=== PATIENT | female | born 1980 | race Caucasian/White ===

== ENCOUNTER 2017-03-16 13:43 | Emergency (ER) | payer OTHER ==
[~2017-03-16 13:43] MED LIST: AMOXICILLIN500 M1 PO; BACTRIM DS TABL1 TA1 PO; BENADRYL; BUSPAR PO; CELEXA PO; KEFLEX500 M1 PO; LORCET 10-6501 EACH PO; METFORMIN PO; MOTRIN600 M2 PO; NORCO1 TAB 10/3 DOB; PEPCID; POTASSIUM CHLO20 ME1 PO; PREDNISONE; TRAZODONE PO; WELLBUTRIN SR150 MG PO; ZOVIRAX800 MG PO
[2017-03-16] MEDS ORDERED: SINGULAIR (13:45)
[2017-03-16] MEDS ORDERED: WELLBUTRIN (13:45)
[2017-03-16] MEDS ORDERED: JANUVIA100 MG (13:46)
[2017-03-16] MEDS ORDERED: NEURONTIN100 MG (13:46)
== END 2017-03-16 14:57 | disposition home or self-care (01) ==
LOC: SED 13:43
DX: K04.7 Periapical abscess without sinus (principal); K05.00 Acute gingivitis, plaque induced; F32.9 Major depressive disorder, single episode, unspecified; E11.9 Type 2 diabetes mellitus without complications
CPT/HCPCS: 96372; 99283; J0696

== ENCOUNTER 2017-05-24 14:31 | Emergency (ER) | payer OTHER ==
[~2017-05-24] VITALS: Ht 160 cm; Wt 72.6 kg
--- NOTE | ~2017-05-24 | US106 ---
[facility] A Service of [facility] & [facility] RADIOLOGY TEXT RESULTS PATIENT: CHELI JUNG LOCATION: SED : 82 UNIT #: [id number] AGE: [address]: Darrius Goldsmith MD SEX: F ORDER DR: [id number] [id number] E MR#: [id number] Acc #: [id number] NAME: CHELI JUNG : 1980 SEX: F STUDY DATE/TIME: 05/24/2017 16:07 UNIT: SED ROOM: STUDY DESCRIPTION: US Preg Uterus Transvaginal Attending Physician: Darrius Goldsmith M.D. Ordering Physician: Darrius Goldsmith M.D. Primary Care Physician: Primary Care Physician No MEDICAL IMAGING REPORT This report is preliminary unless electronic signature is present. EXAM Transvaginal pelvic ultrasound 05/24/2017 HISTORY Patient found out she was 2 weeks ago. Last menstrual period. Patient states she had spotting in March beta HCG 101,088. . FINDINGS Real time ultrasonography pelvic structures performed transvaginally. Study is limited in the absence of transabdominal imaging. The uterus measures approximately 7.89 cm x 8.35 cm x approximately 6.32 cm. There is a single intrauterine gestation present. Cardiac activity is present with heart rate of 173 beats per minute. [place] rump length suggest gestational age 9 weeks 2 days. The gestational sac appears of normal contour. The gestational sac diameters would suggest a gestational age 8 weeks 2 days. No abnormal intrauterine fluid collection. The visualized myometrium is unremarkable. The right ovary measures 3.61 cm x 2.59 cm x 2.87 cm. Arterial flow present. Left ovary measures 2.85 cm x 2.88 cm x 2.09 cm. Arterial flow present. No suspicious adnexal structures and no free fluid in pelvis. IMPRESSION 1. Single intrauterine present. cardiac activity present with heart rate 173 beats per minute. Based upon ultrasound measurements, gestational age approximately 9 weeks 1 day. Estimated date of delivery based upon ultrasound approximately 12/26/2017. 2. Bilateral ovaries normal in appearance. Arterial flow in bilateral ovaries. 3. No free fluid in pelvis. Formal obstetric followup strongly recommended. [facility]. [facility] A Service of [facility] & [facility] RADIOLOGY TEXT RESULTS PATIENT: CHELI JUNG LOCATION: [facility] [place] [birth year] UNIT #: [id number] AGE: [address]: Darrius Goldsmith MD SEX: F ORDER DR: Dictated by... Maged Bertrand M.D. THIS IS AN ELECTRONICALLY VERIFIED REPORT Maged Bertrand M.D. at 05/27/2017 2:44 PM GORDON/anna TD: 05/25/2017 00:02 JOB #: [id number] MEDICAL IMAGING REPORT Page 1 of 1
[~2017-05-24 14:31] MED LIST changes: +JANUVIA100 MG; +NEURONTIN100 MG; +SINGULAIR; +WELLBUTRIN
[2017-05-24] MEDS ORDERED: NOVOLOG100 UNIT/1 (14:50)
[2017-05-24 15:16] LABS: URINE SOURCE CLEAN CATCH
[2017-05-24 15:18] LABS: URINE APPEARANCE HAZY; URINE BILIRUBIN NEG (NEG); URINE BLOOD NEG (NEG); URINE COLOR YELLOW; URINE GLUCOSE 300 MG/DL (NORM); URINE KETONE NEG (NEG); URINE LEUKOCYTE ESTERASE NEG (NEG); URINE NITRATE NEG (NEG); URINE PROTEIN NEG (NEG); URINE UROBILINOGEN 0.2 MG/DL (NORM)
[2017-05-24 15:25] LABS: MICRO INDICATED? NO
[2017-05-24 15:29] LABS: AMPHETAMINE NEG (NEG); BARBITURATES NEG (NEG); BENZODIAZEPINES NEG (NEG); COCAINE NEG (NEG); MARIJUANA NEG (NEG); OPIATES NEG (NEG); TRICYCLIC ANTIDEPRESSANTS NEG (NEG); U METHADONE NEG (NEG)
[2017-05-24 15:57] LABS: BASOPHIL# 0.1 X10e3 (0-0.3); BASOPHIL% 0.8 % (0-2.5); EOSINOPHIL# 0.3 X10e3 (0-0.7); EOSINOPHIL% 2.7 % (0.0-7.0); HEMATOCRIT 33.6 % (35.0-45.0); LYMPHOCYTE# 1.9 X10e3 (1.0-3.5); LYMPHOCYTE% 18.1 % (17.0-45.0); MEAN CELL VOLUME 83.8 FL (83-96); MEAN CORPUSCULAR HEMOGLOBIN 29.9 PG (28-34); MEAN CORPUSCULAR HGB CONC 35.7 g/dL (30-36); MEAN PLATELET VOLUME 10.1 FL (6.5-11.5); MONOCYTE# 0.5 X10e3 (0-1.0); MONOCYTE% 4.8 % (3.0-12.0); NEUTROPHIL# 7.8 X10e3 (1.5-7.1); NEUTROPHIL% 73.6 % (40-75); PLATELET COUNT 180 X10e3 (140-420); RED BLOOD COUNT 4.01 X10e (3.90-5.30); RED CELL DISTRIBUTION WIDTH 12.8 % (11.0-15.5); WHITE BLOOD COUNT 10.5 X10e3 (4.0-10.5)
[2017-05-24 16:06] LABS: DIFF IND NO
[2017-05-24 16:21] LABS: ALBUMIN SERUM 3.6 g/dL (3.5-5.0); ALKALINE PHOSPHATASE 82 U/L (32-92); ALT (SGPT) 35 U/L (10-40); AST (SGOT) 21 U/L (10-42); BILIRUBIN,TOTAL 0.4 mg/dL (0.2-2.0); BLOOD UREA NITROGEN 8 mg/dL (9-23); BUN/CREATININE RATIO 13.33; CALCIUM SERUM 9.2 mg/dL (8.4-10.2); CARBON DIOXIDE 23 mmol/L (22-31); CHLORIDE 105 mmol/L (100-111); CREATININE SERUM 0.6 mg/dL (0.6-1.4); GLOM FILT RATE Estimated 118.1 mL/min (>60); GLUCOSE FASTING 207 mg/dL (70-110); POTASSIUM 3.6 mmol/L (3.5-5.1); PROTEIN TOTAL SERUM 7.4 g/dL (6.0-8.3); SODIUM 136 mmol/L (135-145)
[2017-05-24 16:32] LABS: BILIRUBIN, DIRECT <0.1 mg/dL (0.0-0.2); BILIRUBIN,INDIRECT 0.3 mg/dL (0.0-0.9)
== END 2017-05-24 17:36 | disposition home or self-care (01) ==
LOC: SED 14:31
PROVIDERS: Emergency Medicine
DX: O99.89 Other specified diseases and conditions complicating pregnancy, childbirth and the puerperium (principal); O24.92 Unspecified diabetes mellitus in childbirth; K08.89 Other specified disorders of teeth and supporting structures; O99.331 Smoking (tobacco) complicating pregnancy, first trimester; E10.65 Type 1 diabetes mellitus with hyperglycemia; Z79.4 Long term (current) use of insulin; F31.9 Bipolar disorder, unspecified; Z3A.09 9 weeks gestation of pregnancy
CPT/HCPCS: 36415; 76817; 80048; 80076; 80307; 81003; 82947; 84702; 85025; 99284

== ENCOUNTER 2017-06-06 18:08 | Emergency (ER) | payer OTHER ==
[~2017-06-06] VITALS: Ht 160 cm; Wt 70.8 kg
--- NOTE | ~2017-06-06 | EKG ---
PATIENT: CHELI JUNG UNIT #: [id number] Ventricular Rate: 95 BPM Atrial Rate: 95 BPM P-R Interval: 128 ms QRS Duration: 78 ms Q-T Interval: 346 ms QTC Calculation(Bezet): 434 ms P [place]: 57 degrees Calculated R [place]: 63 degrees Calculated T [place]: 51 degrees Diagnosis Line: Normal sinus rhythm Diagnosis Line: Normal ECG Diagnosis Line: No previous ECGs available Diagnosis Line: Confirmed by BRENDEN GOMES MD ([id number]) on Diagnosis Line: 06/10/2017 9:59:49 PM INTERPRETING MD: FERNANDO
[~2017-06-06 18:08] MED LIST changes: +NOVOLOG100 UNIT/1
[2017-06-06] MEDS ORDERED: VITAMIN D31000 UNI1 PO (18:22)
[2017-06-06] MEDS ORDERED: VITAMIN B125000 MCG SL (18:23)
[2017-06-06 19:03] LABS: BASOPHIL# 0.1 X10e3 (0-0.3); BASOPHIL% 1.2 % (0-2.5); DIFF IND NO; EOSINOPHIL# 0.2 X10e3 (0-0.7); EOSINOPHIL% 2.6 % (0.0-7.0); HEMATOCRIT 35.8 % (35.0-45.0); HEMOGLOBIN 12.6 gm/dL (12.0-16.0); LYMPHOCYTE% 21.1 % (17.0-45.0); MEAN CORPUSCULAR HEMOGLOBIN 29.5 PG (28-34); MEAN CORPUSCULAR HGB CONC 35.1 g/dL (30-36); MONOCYTE# 0.4 X10e3 (0-1.0); MONOCYTE% 3.8 % (3.0-12.0); NEUTROPHIL# 6.8 X10e3 (1.5-7.1); NEUTROPHIL% 71.3 % (40-75); PLATELET COUNT 217 X10e3 (140-420); RED BLOOD COUNT 4.26 X10e (3.90-5.30); RED CELL DISTRIBUTION WIDTH 12.4 % (11.0-15.5); WHITE BLOOD COUNT 9.5 X10e3 (4.0-10.5)
[2017-06-06 19:17] LABS: POC - CKMB <1.0 ng/mL (0.0-7.9); POC - TROPONIN <0.05 ng/mL (<=0.05)
[2017-06-06 19:18] LABS: URINE SOURCE CLEAN CATCH
[2017-06-06 19:20] LABS: BUN/CREATININE RATIO 23.33; CALCIUM SERUM 9.1 mg/dL (8.4-10.2); CREATININE SERUM 0.6 mg/dL (0.6-1.4); GLOM FILT RATE Estimated 118.1 mL/min (>60); POTASSIUM 3.5 mmol/L (3.5-5.1)
[2017-06-06 19:21] LABS: URINE APPEARANCE CLEAR; URINE BILIRUBIN NEG (NEG); URINE BLOOD NEG (NEG); URINE COLOR YELLOW; URINE KETONE NEG (NEG); URINE LEUKOCYTE ESTERASE NEG (NEG); URINE NITRATE NEG (NEG); URINE PROTEIN NEG (NEG); URINE SPECIFIC GRAVITY 1.025 (1.003-1.035)
[2017-06-06 19:22] LABS: URINE GLUCOSE NEG (NORM)
[2017-06-06 19:23] LABS: MICRO INDICATED? NO
== END 2017-06-06 20:42 | disposition home or self-care (01) ==
LOC: SED 18:08
PROVIDERS: Nurse Practitioner Family
DX: R42 Dizziness and giddiness (principal); R11.0 Nausea; R53.1 Weakness; E11.9 Type 2 diabetes mellitus without complications; J45.909 Unspecified asthma, uncomplicated; B19.20 Unspecified viral hepatitis C without hepatic coma; F17.210 Nicotine dependence, cigarettes, uncomplicated; Z86.14 Personal history of Methicillin resistant Staphylococcus aureus infection; Z79.4 Long term (current) use of insulin; Z79.899 Other long term (current) drug therapy; Z91.012 Allergy to eggs
CPT/HCPCS: 80048; 81003; 82553; 82947; 84484; 84702; 85025; 93005; 96360; 99284